=== PATIENT | female | born 1990 | race Caucasian/White ===

== ENCOUNTER → 2023-02-25 12:37 | Outpatient (BNVA) | payer BC, MEDICAID, SELFPAY | PROVIDERS: Visit Provider Internal Medicine Rheumatology | DX: M19.90 Unspecified osteoarthritis, unspecified site (principal); Z79.899 Other long term (current) drug therapy; R68.2 Dry mouth, unspecified; Z11.59 Encounter for screening for other viral diseases; M45.6 Ankylosing spondylitis lumbar region; M54.89 Other dorsalgia; E11.9 Type 2 diabetes mellitus without complications; Z71.85 Encounter for immunization safety counseling | CPT/HCPCS: 36415; 72100; 72202; 73130; 73562; 73630; 80076; 82565; 85025; 85651; 86140; 86200; 86235; 86480; 86704; 86803; 86812; 87340 ==

== ENCOUNTER 2023-05-27 15:12 | Outpatient (CLI) | payer BC, MEDICAID, SELFPAY ==
[2023-05-28 11:41] LABS: Creatinine, Random Urine 126 mg/dL (20-275); Protein, Total, Random 11 mg/dL (5-24); Protein/Creatinine Ratio 0.087 (0.024-0.184); Protein/Creatinine Ratio 87 mg/g creat (24-184)
[2023-05-28 14:50] LABS: JO-1 Antibody <1.0 NEG AI (<1.0 NEG)
[2023-05-29 12:09] LABS: Albumin,Urine Random 0 %; Alpha-1-Globulins Urine Random 0 %; Alpha-2-Globulins Urine Random 0 %; Beta-Globulin,Urine Random 0 %; Gamma Globulin,Urine Random 0 %
== END 2023-05-27 15:13 | disposition home or self-care (01) ==
LOC: LAB 15:17
PROVIDERS: Visit Provider Nurse Practitioner Family
DX: L30.9 Dermatitis, unspecified (principal); Z79.899 Other long term (current) drug therapy
CPT/HCPCS: 36415; 82570; 84156; 84166; 86235

== ENCOUNTER → 2023-08-13 11:04 | Outpatient (BNVA) | payer BC, MEDICAID, SELFPAY | PROVIDERS: Visit Provider Internal Medicine Rheumatology | DX: M19.90 Unspecified osteoarthritis, unspecified site (principal); Z79.899 Other long term (current) drug therapy; M54.89 Other dorsalgia; E11.9 Type 2 diabetes mellitus without complications; Z71.85 Encounter for immunization safety counseling | CPT/HCPCS: 36415; 80076; 82565; 85025; 86140 ==